=== PATIENT | male | born 1960 | race Caucasian/White ===

== ENCOUNTER → 2017-11-06 | Outpatient (CLI) | payer BC ==
[~2017-11-06] VITALS: Ht 185.4 cm; Wt 120.2 kg
[~2017-11-06] MED LIST: ASPIR 8181 M1 PO; GABAPENTIN 100100 MG PO; NORVASC2.5 MG PO
--- NOTE | ~2017-11-06 | HPC ---
[facility] [address] [place] [address] PAIN MANAGEMENT CONSULTATION Name: DENISE MCELROY Room #: REG [facility] Bharath#: [id number] Admission: 11/06/17 Attend Phys: Jatin Cardona DO Discharge: Date of : 64 Report #: [id number] THIS REPORT FOR: //name// CC: Anupam Kim DO Jatin Cardona DATE OF SERVICE: 11/06/2017 The patient is a 57-year-old gentleman seen in consultation at the request of Dr. Kim for evaluation of bilateral lower extremity numbness and paresthesia. The patient notes symptoms began in May without antecedent trauma or overuse. He prior had a decompressive laminectomy back in the 80s and 90s when he was 20 years of age and did well with the surgeries. He has noted paresthesia about the hips down. The proximal aspect seems to be getting a little better, but he is having increasing problems with proprioception. He describes continuous, steady issues with episodic pain rating from 2 to 7 on a VAS. Nothing seems to make the symptoms better or worse. REVIEW OF SYSTEMS: Complete review of systems is attached to the chart and was gone over with the patient. He is , does not smoke or drink alcohol to excess. History of hypertension treated with amlodipine. History of renal lithiasis. Otherwise, he has enjoyed reasonably good health other than the aforementioned axial back injuries, status post back surgery in 1979, 1989 and again in 2001. He had a detached retina in 2009, umbilical hernia in 2002 and ureteral stricture in 1999. 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 Pain impact score is fairly nominal, averaging /70. MEDICATIONS: Again medication includes only gabapentin, recently started, titrated up to 300 mg (100 mg 3 times a day), amlodipine 2.5 mg for hypertension and Cialis as needed. PHYSICAL EXAMINATION: VITAL SIGNS: Reveals a 6 feet 1 inch, 265 pounds gentleman, BMI is elevated at 35 kilograms per meter squared. Blood pressure 134/88, pulse 76 and respirations 16. NEUROLOGIC: Cranial nerves 2-12 are grossly intact. Speech is fluent. He is alert and oriented to person, place and time, judged to be a reasonable historian. Extraocular muscles are intact. There is no nystagmus. Lateral gaze deviation. Thyroid is modestly enlarged, no nodules are noted. NECK: Cervical range of motion is full. Upper extremity strength is symmetric. HEART: Regular rhythmical without murmur. LUNGS: Clear to auscultation. ABDOMEN: Shows an endomorphic build. [facility] [address] [place] [address] PAIN MANAGEMENT CONSULTATION Name: DENISE MCELROY Room #: REG [facility] GurinderRona#: [id number] Admission: 11/06/17 Attend Phys: Jatin Cardona DO Discharge: Date of : 64 Report #: [id number] MUSCULOSKELETAL: Rises from chair using armrest. Lower extremity strength is generally symmetric about 4-5 to all muscle groups tested. Patellar and Achilles reflexes are diminished, but symmetric. Straight leg raise is negative. Does have objective decreased two point tactile discrimination, right greater than left leg from the groin down, but a little worse from the knee down. DIAGNOSTIC STUDIES: MRI of the lumbar spine from 10/05/2017 was reviewed, while it does show some central disk compromise, L2-L3 with spinal stenosis, bilateral facet arthropathy L3-L4 with central and left paracentral disk herniations, some spinal stenosis noted, bilateral neural foraminal narrowing, similarly L4-L5 showed bilateral neural foraminal narrowing, facet hypertrophy. L5-S1 shows a broad-based disk bulge with bilateral neural foraminal narrowing, worse on the right. There are no dramatically acute symptoms and again no correlation with motor strength or pain. Simply loss of proprioception. Concerned for demyelinating process or other neurologic disorder. RECOMMENDATIONS: 1. EMG of the lower extremities, bilateral. 2. Continue gabapentin. 3. Follow up after diagnostic studies for further evaluation. Thank you for allowing me to participate in the patient's care. I will keep you abreast of his progress. <ELECTRONICALLY SIGNED> By: Jatin Cardona DO 11/08/17 0808 [id number] Jatin Cardona DO /nt
[2017-11-06 10:30] VITALS: BP 134/88
== END ==
LOC: PAIN 07:09
DX: M47.896 Other spondylosis, lumbar region (principal); M48.061 Spinal stenosis, lumbar region without neurogenic claudication; R20.2 Paresthesia of skin

== ENCOUNTER → 2017-12-18 | Outpatient (CLI) | payer BC ==
[~2017-12-18] VITALS: Ht 185.4 cm; Wt 121.6 kg
[~2017-12-18] MED LIST changes: +CENTRUM SILVER1 EAC2 PO
--- NOTE | ~2017-12-18 | HPC ---
[facility] [place] [address] PAIN MANAGEMENT CONSULTATION Name: DENISE MCELROY DANA Room #: REG [facility] Sinha#: [id number] Admission: 12/18/17 Attend Phys: Jatin Cardona DO Discharge: Date of : 64 Report #: [id number] THIS REPORT FOR: //name// CC: Anupam Cardona The patient is a pleasant 57-year-old gentleman, prior seen in consultation on 11/06/2017. The patient has dysesthesia in bilateral lower extremities. Last visit, we requested an EMG. It has been accomplished; however, the results are not yet available. Returns to pain clinic today, notes that the curious dysesthesia in the lower extremities began about 7 months ago. He was moving in his closet, caught his left foot, stubbed his toe with acute turning sensation in his back. He had significant pain in the left toe, which has resolved, but he has had paresthesia in his legs with some radiating pain into the right groin. He has dysesthesia on the top of the feet. As it moves down his legs, the numbness increases with loss of sensation in his feet. It sounds like the EMG may have shown some peripheral neuropathy. Again, however, we do not have those results. His general practitioner had suggested B12 which the patient has not been able to start yet. He incidentally notes he has also been short of breath with activity, it sounds like somewhat neurogenic claudication. He has had a complete cardiac workup, which was unremarkable. He returns to pain clinic today, noting pain is a 5-6 on VAS. No arthritis. Vital signs stable. BMI 35.4 kilograms per meter squared. He has not fallen since last visit. He is not using opiates routinely. After discussion with the patient today, we would like to move forward with epidural injection under fluoroscopy. It sounds like he has a neurogenic claudication equivalent with MRI noting L3-L4 to have a left paracentral herniation, L4-L5 to have bilateral neural foraminal narrowing. ASSESSMENT: Symptomatic lumbar radiculopathy. RECOMMENDATION: Epidural injection under fluoroscopy today. Follow up in 4 weeks to reevaluate. We will review the EMG findings at that time. PROCEDURE: Lumbar epidural injection under fluoroscopy. PROCEDURE NOTE: After both written and informed consent to include risk of spinal cord damage, increased pain, weakness and dural puncture, the patient was taken to the fluoroscopy suite, placed in the prone position. After sterile prep and drape, a skin wheal with lidocaine was raised. A 22-gauge epidural Tuohy needle was inserted in the midline at L4-L5 with good loss to resistance. Negative aspiration for cerebrospinal fluid or blood was noted. Then 1 mL of Omnipaque under biplanar fluoroscopy showed good spread within the epidural [address] [address] PAIN MANAGEMENT CONSULTATION Name: NAVIDENISE Room #: REG [facility] Sinha#: [id number] Admission: 12/18/17 Attend Phys: Jatin Cardona DO Discharge: Date of : 64 Report #: [id number]. This was followed with 80 mg of triamcinolone plus 1 mL of 1.5% preservative-free Xylocaine, 0.5 mL Xylocaine was then injected to flush the needle; it was removed. The patient was monitored for an appropriate period of time and discharged in good and stable condition. <ELECTRONICALLY SIGNED> By: Jatin Cadrona DO 12/20/17 0811 [id number] 0430 Jatin Cardona DO /nt
[2017-12-18 12:51] VITALS: BP 143/89
== END | disposition home or self-care (01) ==
LOC: PAIN 07:04
DX: M54.16 Radiculopathy, lumbar region (principal); Z79.82 Long term (current) use of aspirin; Z79.899 Other long term (current) drug therapy

== ENCOUNTER → 2018-01-18 | Outpatient (CLI) | payer BC ==
[~2018-01-18] VITALS: Ht 185.4 cm; Wt 120.2 kg
--- NOTE | ~2018-01-18 | HPC ---
[facility] [place] [address] PAIN MANAGEMENT CONSULTATION Name: DENISE MCELROY DANA Room #: REG [facility] Ariane.#: [id number] Admission: 01/18/18 Attend Phys: Jatin Cardona DO Discharge: Date of : 64 Report #: [id number] THIS REPORT FOR: //name// CC: Anupam Cardona DATE OF SERVICE: 01/18/2018 The patient is a 57-year-old gentleman originally seen in consultation on 11/06/2017. The patient is status post lumbar decompressive laminectomy, multiple. Initial surgery was in , subsequent surgery in the . He began noticing symptoms in May without antecedent trauma and overuse, primary concerning issue was bilateral lower extremity paresthesia. Fortunately, he notes no specific weakness. No saddle anesthesia, no bowel or bladder continence changes. He simply notes loss of 2-point discrimination and paresthesia radiating into the feet. The patient came to us on low dose gabapentin (100 mg t.i.d.). We did a single epidural injection on 12/18/2017 with really no significant change in symptoms. I reviewed the patient's EMG, I referred him to Dr. Jorge Cole, EMG was accomplished on 12/14/2017. Study demonstrated multiple chronic changes probably secondary to radiculopathies caused by prior back surgery. Borderline finding for neuropathy was also present. Recommendation by Dr. Cole was a repeat EMG anywhere from 3-6 months and workup for underlying neuropathy. The patient returns to the pain clinic today. Again, notes no significant change following the epidural injection. Paresthesia continues unabated. The patient really notes no pain. PHYSICAL EXAMINATION: Shows 57-year-old gentleman, BMI 35 kilograms per meter squared. Vital signs are stable as noted in the EMR. Rises from the chair using armrest. Gait is tandem. Lower extremity strength is preserved. Straight leg raise is negative. Patellar and Achilles reflexes are diminished, but symmetric. Does have objective decreased 2-point discrimination, right greater than left leg from the groin down, but significantly more "dense" from about the knee down. DIAGNOSTIC STUDIES: MRI from 10/05/2017 was reviewed, does show some disk compromise, stenosis at L2-L3, bilateral facet arthropathy at L3-L4. ASSESSMENT: Neuropathic pain, bilateral lower extremities in a gentleman status post multiple back surgeries in the distant past. [address] [address] PAIN MANAGEMENT CONSULTATION Name: DENISE MCELROY DANA Room #: REG [facility] Sinha#: [id number] Admission: 01/18/18 Attend Phys: Jatin Cardona DO Discharge: Date of : 64 Report #: [id number] RECOMMENDATION: Long discussion with the patient today about therapeutic options and concerns. He was actually seen from 10:00 a.m. to 10:25. Greater than 50% of the time spent counseling the patient. Greatest concern is for demyelinating neuropathy. The patient does not have any metabolic issues, which would likely contribute to peripheral neuropathy. He takes Norvasc for hypertension. We have elected to have him discontinue his low dose gabapentin. I have taken the liberty of referring the patient back to Dr. Cole for reevaluation along with a repeat EMG the end of next month. I have asked for Dr. Cole to evaluate the patient for any other etiologies for peripheral neuropathy including demyelinating disease. The patient was discharged in good and stable condition. Followup will be with Dr. Cole. I will be happy to see the patient if lumbar radicular painful issues arise; however, presently, he does not warrant any interventional therapy. <ELECTRONICALLY SIGNED> By: Jatin Cardona DO 01/19/18 0727 1211 1820 Jatin Cardona DO /nt
[2018-01-18 10:12] VITALS: BP 153/81
== END ==
LOC: PAIN 07:07
DX: G62.9 Polyneuropathy, unspecified (principal)